=== PATIENT | female | born 1955 | race Caucasian/White ===

== ENCOUNTER 2016-11-18 05:45 | Day surgery (SDC) | payer BC ==
[~2016-11-18] VITALS: Ht 160 cm; Wt 65.8 kg
[~2016-11-18 05:45] MED LIST: ACETAMINOPHEN325 M1 PO; CALCIUM500 MG PO; DAILY MULTIPLE1 EACH PO; PERCOCET 7.5-31 EACH PO; VITAMIN D1000 UNI1 PO
--- NOTE | 2016-11-18 08:37 | NUR ---
11/18/16 0837 Elizabeth Rodriguez PT O2 100% O2 REMOVED. PT AWAKE AND TALKING. PT DENINES PAIN OR NAUSEA MAINING OWN AIRWAY.
[2016-11-18] MEDS ORDERED: IBUPROFEN600 MG PO (08:46)
[2016-11-18] MEDS ORDERED: OXYCODON-ACETA1 EAC2 PO (08:46)
--- NOTE | 2016-11-18 09:02 | NUR ---
ICED WATER AND COFFEE GIVEN. CALL LIGHT W/IN REACH.
--- NOTE | 2016-11-18 10:02 | NUR ---
PT UP TO THE BATHROOM WITH SVETLANA ASST. TOLERATED WELL, LG VOID NOTED AND PT INCONTINENT IN THE BED. LINENS CHANGED AND PT BACK TO BED. WARM BLANKET GIVEN.
--- NOTE | 2016-11-18 10:17 | NUR ---
VERBAL DC INSTRUCTIONS GIVEN IN PRESENCE OF SPOUSE. PT AND SPOUSE BOTH VERBALIZE UNDERSTANDING. PT DRESSES SELF W/SPOUSE IN ROOM AND TRANSFERS SELF WELL TO WC AND PERSONAL VEHICLE.
--- NOTE | 2016-11-18 12:40 | NUR ---
PT RERSTING IN WITH JESSICA BY HER SIDE. SHE IS ALERT AND ORIENTED. I FOUND HER TO BE VERY FRIENDLY. BOTH SEEMED INFORMED AND ASKED FEW QUESTONS. DR MARADIAGA CAME IN FOR A PRE-OP EXAM. PT THANKED ME, WILL CONTINUE TO FOLLOW
--- NOTE | 2016-11-19 06:49 | OR ---
[facility] [address] [place], [place] [address] Signed DATE OF PROCEDURE: 11/18/16 PREOPERATIVE DIAGNOSIS: Right superior posterior thorax soft tissue mass. POSTOPERATIVE DIAGNOSES Right posterior superior soft tissue mass of thorax, subfascial 6 cm, probable lipoma. PROCEDURE Excision of right posterior thorax subfascial soft tissue mass (6 cm). SURGEON: Miko Looney MD. ANESTHESIA General endotracheal (Mara Osuna, CD TECHNICIAN and local 20 mL of 0.25% Marcaine with epinephrine). INDICATION This 60-year-old white woman is a patient of Dr. Hidalgo and is noted to have a soft tissue mass in the right posterior thorax not far from the scapular tip. It appears smooth, but is rather large. It most likely represents a lipoma. It is increasingly symptomatic for her. She is admitted at th is time to undergo excision of the lesion, understands the risks of bleeding, infection, recurrence, and other unforeseen complications, understand that she wished to proceed. FINDINGS The lesion was adherent to the fascia of the latissimus dorsi and was most consistent with multilobulated lipoma. The lesion was approximately 6 cm in maximum length. Complete excision was undertaken without problem. DESCRIPTION OF PROCEDURE The patient was brought to the operating room, given a general endotracheal anesthetic. She was placed in lateral position with careful padding of the axilla and legs and supportive arms. The right posterior thorax was prepared with a Chlorhexidine solution and draped sterilely. Preoperative antibiotic Ancef had been given and sequential compression device stockings were used as well as subcutaneous heparin. After sterile draping, a transverse incision was made along the line of skin tension. Dissection carried through the dermis with electrocautery. The capsule was noted, which was opened and an underlying lipomatous appearing mass was noted. This was dissected free from the subcutaneous more fully down to the fascia of the posterior thorax. This was dissected out completely without morcellation in any way. The lesion excised was approximately 6 cm in length. A 20 mL of 0.25% Marcaine with epinephrine was injected locally for postoperative analgesic effect. The wound was closed in layers with interrupted 2-0 Electronically Signed By: BRENDA GREGORIO MD 11/19/16 0649 PATIENT NAME: DAVID HERNANDEZ OPERATIVE REPORT DATE OF : 51 PHYSICIAN: BRENDA GREGORIO MD REPORT #: [id number] REPORT IS CONFIDENTIAL AND NOT TO BE RELEASED WITHOUT AUTHORIZATION [facility] [address] [place] [address] Signed Vicryl and a running subcuticular 3-0 Vicryl for the skin. Steri-Strips were applied as was a Mepilex silver sponge dressing and an OpSite. BLOOD LOSS: Minimal. COMPLICATIONS None. She was returned to the supine position, ultimately extubated and transferred to recovery room in good condition and suffered no complications. Sponge, needle, and instrument counts were reported as correct x3. MD ALEJANDRINA Boggs/Zion /[id number] cc: Presley Hidalgo MD Electronically Signed By: BRENDA GREGORIO MD 11/19/16 0649 PATIENT NAME: DAVID HERNANDEZ OPERATIVE REPORT DATE OF : 51 PHYSICIAN: BRENDA GREGORIO MD REPORT #: [id number] REPORT IS CONFIDENTIAL AND NOT TO BE RELEASED WITHOUT AUTHORIZATION
== END 2016-11-18 10:20 | disposition home or self-care (01) ==
LOC: DS 05:45
PROVIDERS: Surgery
PROC: 0JB60ZZ Excision of Chest Subcutaneous Tissue and Fascia, Open Approach (ICD-10-PCS; principal; 2016-11-18 06:45)
DX: R22.2 Localized swelling, mass and lump, trunk (principal); Z86.010 Personal history of colon polyps; Z87.891 Personal history of nicotine dependence; Z98.890 Other specified postprocedural states
CPT/HCPCS: 00400; J0330; J0690; J1100; J1644; J1885; J2405; J2704; J7120

== ENCOUNTER 2020-01-09 06:25 | Day surgery (SDC) | payer MEDICARE ==
[~2020-01-09] VITALS: Ht 160 cm; Wt 64.5 kg
--- NOTE | ~2020-01-09 | OR ---
[facility] [address] [place], [place] [address] Draft DATE OF OPERATION: 01/09/2020 SURGEON: Marvin Maradiaga MD PREOPERATIVE DIAGNOSES: 1. Family history of colon cancer in maternal grandfather. 2. Passed prior polyp. POSTOPERATIVE DIAGNOSIS: Normal colon except for possible cecal polyp (biopsied). PROCEDURE: Total colonoscopy to cecum with cold morcellation biopsy x1. ANESTHESIA: Intravenous sedation, fentanyl 100 mcg and Versed 6 mg. INDICATION: This is a 64-year-old white woman is a patient of Dr. Hidalgo and is here for surveillance colonoscopy. She is known to have family history of colon cancer and maternal grandfather. She underwent colonoscopy in the past in 2017, was found to have polyp. The risks of surveillance colonoscopy were reviewed with her including bleeding, infection, perforation, and so on. She understands and wished to proceed. FINDINGS: The prep was good. Complete colonoscopy was undertaken to the cecum. Evaluation behind the ileocecal valve was difficult. A biopsy was obtained and tissue directly behind the ileocecal valve, which did not have typical polyp appearance, but nevertheless was biopsied to assure no sign of adenomatous change. The remaining colon was normal. DESCRIPTION OF PROCEDURE: The patient was brought to the endoscopy suite and placed in lateral decubitus position given intravenous sedation to the point of slurred speech and nystagmus. Digital rectal examination was performed, which was normal. An Olympus video colonoscope was passed in the rectum and manipulated throughout the colon. Passage beyond the transverse colon was somewhat challenging due to angulation deformity, but ultimately was accomplished. The scope was then passed to the cecum where the cecum was visualized as well as the ileocecal valve. Full intubation was somewhat challenging, but the area directly behind the ileocecal valve could not quite be seen fully and therefore, a biopsy forceps was placed there to withdraw the mucosa. This revealed no obvious polyp per se, but PATIENT NAME: DAVID HERNANDEZ OPERATIVE REPORT DATE OF : 51 REPORT #: [id number] PHYSICIAN: MARVIN MARADIAGA MD PCP: JANA HIDALGO MD REPORT IS CONFIDENTIAL AND NOT TO BE RELEASED WITHOUT AUTHORIZATION [facility] [address] [facility] [place] [address] Draft somewhat thickened and on that basis, biopsies obtained and passed for pathology. The scope was then removed, upon withdrawal of scope, no other findings were noted throughout. She tolerated procedure well. She was taken to the recovery room in good condition. CONCLUDING DIAGNOSIS: Possible polyp of cecum, uncertain, await pathology. PLAN: Repeat colonoscopy in 5 years adverse findings on pathology. Marvin Maradiaga MD JM/MODL /[id number] cc: Dr. Huang Copies: ~ PATIENT NAME: DAVID HERNANDEZ OPERATIVE REPORT DATE OF : 51 REPORT #: [id number] PHYSICIAN: MARVIN MARADIAGA MD PCP: JANA HIDALGO MD REPORT IS CONFIDENTIAL AND NOT TO BE RELEASED WITHOUT AUTHORIZATION
[~2020-01-09 06:25] MED LIST changes: +IBUPROFEN600 MG PO; +OXYCODON-ACETA1 EAC2 PO
--- NOTE | 2020-01-09 08:23 | NUR ---
01/09/20 0823 Elizabeth Romo 0810 PT ARRIVED TO PACU ON 2L VIA NC, PT WAKES EASILY TO TACTILE STIMULI. VSS. PT BACK TO SLEEP AND SMALL AMOUNT OF SNORING NOTED. 0821 MD AT BEDSIDE AND PT WAKES TO TACTILE STIMULI.
--- NOTE | 2020-01-10 11:45 | PATH ---
[facility] [address] [place], [place] [address] Signed SPECIMEN(S): A CECUM SPECIMEN SOURCE: A. CECUM CLINICAL HISTORY: Personal hx polyps; rectal bleeding. Post-Op: Possible cecal polyp. MICROSCOPIC DESCRIPTION: Histologic sections of all submitted blocks are examined by light microscopy. These findings, together with the gross examination, support the pathologic diagnosis. FINAL PATHOLOGIC DIAGNOSIS: Colon, cecum, biopsy: - Colonic mucosa with thickened muscularis mucosa (see Comment). - Negative for dysplasia or malignancy. COMMENT: The findings could represent a submucosal leiomyoma. Correlation with colonoscopic findings is recommended. NAL:[facility]:C2NR GROSS DESCRIPTION: The specimen, labeled "MP," and designated on the requisition "cecum biopsy," is received in formalin and consists of one fragment of pink-garcia tissue (0.3 x 0.2 x 0.2 cm). The specimen is submitted entirely in cassette (A1). AC (under the direct supervision of a pathologist) The Gross Description was prepared using a voice recognition system. The report was reviewed for accuracy; however, sound-alike word errors, addition and/or deletions may occur. If there is any question about this report, please contact Client Services. PERFORMING LABORATORY: The technical component was performed by [facility], [address] [place] [address] (Director Community Health Nursing: Mackenzie Kwon MD; CLIA# [id number]). [facility], [address] [address] (CLIA# [id number]). Diagnostician: Shyanne Ingram MD PATIENT NAME: DAVID HERNANDEZ PATHOLOGY DATE OF : 51 REPORT #: [id number] PHYSICIAN: [facility] PCP: JANA PEREZ MD REPORT IS CONFIDENTIAL AND NOT TO BE RELEASED WITHOUT AUTHORIZATION [facility] [address] [place] [address] Signed Pathologist Electronically Signed 01/10/2020 Copies: ~ PATIENT NAME: DAVID HERNANDEZ PATHOLOGY DATE OF : 51 REPORT #: [id number] PHYSICIAN: [facility] PCP: JANA PEREZ MD REPORT IS CONFIDENTIAL AND NOT TO BE RELEASED WITHOUT AUTHORIZATION
== END 2020-01-09 08:50 | disposition home or self-care (01) ==
LOC: DS 06:25
PROVIDERS: ATTEND Surgery
PROC: 0DBH8ZX Excision of Cecum, Via Natural or Artificial Opening Endoscopic, Diagnostic (ICD-10-PCS; principal; 2020-01-09 06:45)
DX: Z12.11 Encounter for screening for malignant neoplasm of colon (principal); K63.5 Polyp of colon; Z86.010 Personal history of colon polyps
CPT/HCPCS: 99153; G0500; J2250; J3010; J7121

== ENCOUNTER 2024-03-08 10:03 | Day surgery (SDC) | payer MEDICARE ==
[~2024-03-08] VITALS: Ht 160 cm; Wt 60.9 kg
[~2024-03-08 10:03] MED LIST changes: +IBLOOD GLUCOSE TEST STRIP 1 EA TEST VI PRN; +LACTATED RINGER'S 1,000 ML IV SCH; +LIDOCAINE HCL 1% 5 ML SDV INJ ONE; +LIPITOR20 MG PO; +MIDAZOLAM HCL 5 MG/5 ML VIAL IV PRN; +PEPCID AC10 MG PO; +VAZALORE81 MG PO; +fentaNYL citrate 100 MCG/2 ML VIAL IV PRN
[2024-03-08 10:41] VITALS: BP 134/72
[2024-03-08] MEDS ORDERED: MIDAZOLAM HCL 5 MG/5 ML VIAL ONE (11:00)
[2024-03-08] MEDS ORDERED: fentaNYL citrate 100 MCG/2 ML VIAL ONE (11:00)
--- NOTE | 2024-03-08 12:12 | NUR ---
03/08/24 1212 Trisha Her 1207-PATIENT ARRIVED TO PACU ON 3L NC RR EVEN. PATIENT DROWSY AROUSES TO VERBAL STIMULI DENIES PAIN OR NAUSEA. LAYING LEFT LATERAL ABDOMEN SOFT. IVF INFUSING. DOZES BACK TO SLEEP
[2024-03-08 13:00] VITALS: BP 131/81
--- NOTE | 2024-03-10 10:55 | PATH ---
[facility] [address] [facility] [place] [address] Signed SPECIMEN(S): A TRANSVERSE COLON POLYPS SPECIMEN(S): B CECUM COLON POLYP SPECIMEN(S): C ASCENDING COLON POLYPS SPECIMEN(S): D TRANSVERSE COLON POLYP SPECIMEN SOURCE: A. TRANSVERSE COLON POLYPS B. CECUM COLON POLYP C. ASCENDING COLON POLYPS D. TRANSVERSE COLON POLYP CLINICAL HISTORY: Rectal bleeding, family history of colon CA. Post: Polyps. FINAL PATHOLOGIC DIAGNOSIS: A. Transverse colon, polypectomies: - Tubular adenomas (two fragments). - Negative for high-grade dysplasia or malignancy. B. Cecum, polypectomies: - Tubular adenomas (multiple fragments). - Negative for high-grade dysplasia or malignancy. C. Ascending colon, polypectomies: - Tubular adenomas (multiple fragments). - Negative for high-grade dysplasia or malignancy. D. Transverse colon, polypectomy: - Tubular adenoma. - Negative for high-grade dysplasia or malignancy. DWS:cml MICROSCOPIC EXAMINATION: Histologic sections of all submitted blocks are examined by light microscopy. These findings, together with the gross examination, support the pathologic diagnosis. GROSS DESCRIPTION: A. The specimen, labeled and designated "Sunny Neumann, transverse colon polyps," is received in formalin and consists of two garcia soft tissue fragments, ranging from 0.3-0.4 cm. Entirely submitted in (A1). B. The specimen, labeled and designated "Sunny Neumann, cecum colon polyp," is received in formalin and consists of four garcia soft tissue fragments, ranging PATIENT NAME: DAVID NEUMANN PATHOLOGY DATE OF : 51 REPORT #: [id number] PHYSICIAN: [facility] PCP: JANA PEREZ MD REPORT IS CONFIDENTIAL AND NOT TO BE RELEASED WITHOUT AUTHORIZATION [facility] [address] [place], [place] [address] Signed from 0.2-0.4 cm. Entirely submitted in (B1). C. The specimen, labeled and designated "Nel, Sunny, ascending colon polyps," is received in formalin and consists of four garcia soft tissue fragments, ranging from 0.2-0.4 cm. Entirely submitted in (C1). D. The specimen, labeled and designated "Nel, M, transverse colon polyp," is received in formalin and consists of three garcia soft tissue fragments, ranging from 0.2-0.3 cm. Entirely submitted in (D1). AB (under the direct supervision of a pathologist) The Gross Description was prepared using a voice recognition system. The report was reviewed for accuracy; however, sound-alike word errors, addition and/or deletions may occur. If there is any question about this report, please contact Client Services. PERFORMING LABORATORY: Technical component was performed by [facility], [address] [place] [id number] (CLIA# [id number]). Professional interpretation was performed by [facility], [address] [place] [id number] (CLIA#: [id number]). Diagnostician: Derrick Khalil MD Pathologist Electronically Signed 03/10/2024 Copies: ~ PATIENT NAME: DAVID NEUMANN PATHOLOGY DATE OF : 51 REPORT #: [id number] PHYSICIAN: [facility] PCP: JANA PEREZ MD REPORT IS CONFIDENTIAL AND NOT TO BE RELEASED WITHOUT AUTHORIZATION
--- NOTE | 2024-03-10 13:15 | OR ---
[facility] [address] [place], [place] [address] Signed DATE OF OPERATION: 03/08/2024 SURGEON: Marvin Maradiaga MD PREOPERATIVE DIAGNOSIS: Family history of colon cancer and history of polyps. POSTOPERATIVE DIAGNOSES: 1. Sigmoid diverticulosis. 2. Polyps x6. PROCEDURE: Total colonoscopy to cecum with cold morcellation polypectomy x6. ANESTHESIA: Intravenous sedation; fentanyl 100 mcg, Versed 6 mg. INDICATION: This 68-year-old white woman is a patient Dr. Jana Hidalgo. She has past medical history including polyp resection and has had colonoscopy in 2014 and 2019. She does have family history of colon cancer. She is admitted at this time to undergo colonoscopy. She understands the risk of bleeding, infection, and perforation. FINDINGS: The prep was excellent. Complete colonoscopy was undertaken of cecum with full intubation of the cecum. She had six polyps in aggregate, all of them small and all excised with cold morcellation technique. Additionally, she had sigmoid diverticulosis. DESCRIPTION OF PROCEDURE: The patient was brought to the endoscopy suite and placed in lateral decubitus position, given intravenous sedation to the point of slurred speech and nystagmus. Digital rectal examination was normal. An Olympus video colonoscope was passed in the rectum and manipulated throughout the colon. Numerous diverticula were noted in the sigmoid and left colon. Scope was ultimately passed to the rectum. Scope was manipulated and irrigation undertaken. A small polyp was noted in the cecum. Withdrawal showed two additional polyps of the right colon, both excised with cold morcellation technique. Additionally, there was a right transverse colon polyp excised with cold morcellation technique and two left transverse colon polyps excised. Further withdrawal showed only diverticulosis. Electronically Signed By: MARVIN MARADIAGA MD 03/10/24 1315 PATIENT NAME: DAVID HERNANDEZ OPERATIVE REPORT DATE OF : 51 REPORT #: [id number] PHYSICIAN: MARVIN MARADIAGA MD PCP: JANA HIDALGO MD REPORT IS CONFIDENTIAL AND NOT TO BE RELEASED WITHOUT AUTHORIZATION [facility] [address] [place], [place] [address] Signed Retroflexed view was normal. Scope was removed. The patient was taken to the recovery room in good condition. CONCLUDING DIAGNOSIS: Polyps x6 and sigmoid diverticulosis. PLAN: Recommend repeat colonoscopy in 5 years based on history of polyps and family history of colon cancer, sooner if symptoms should develop. I would recommend a high-fiber diet on the basis of diverticulosis. She will return to the ongoing care of Dr. Hidalgo. MD ALEJANDRINA Boggs/DEBBIEL /[id number] cc: Jana Hidalgo MD Copies: JANA HIDALGO MD ~ Electronically Signed By: MARVIN MARADIAGA MD 03/10/24 1315 PATIENT NAME: DAVID HERNANDEZ OPERATIVE REPORT DATE OF : 51 REPORT #: [id number] PHYSICIAN: MARVIN MARADIAGA MD PCP: JANA HIDALGO MD REPORT IS CONFIDENTIAL AND NOT TO BE RELEASED WITHOUT AUTHORIZATION
== END 2024-03-08 13:10 | disposition home or self-care (01) ==
LOC: DS 10:03
PROVIDERS: ATTEND Surgery
PROC: 0DBL8ZZ Excision of Transverse Colon, Via Natural or Artificial Opening Endoscopic (ICD-10-PCS; principal; 2024-03-08 11:30)
DX: Z12.11 Encounter for screening for malignant neoplasm of colon (principal); D12.3 Benign neoplasm of transverse colon; D12.0 Benign neoplasm of cecum; D12.2 Benign neoplasm of ascending colon; K57.30 Diverticulosis of large intestine without perforation or abscess without bleeding; E78.5 Hyperlipidemia, unspecified; K21.9 Gastro-esophageal reflux disease without esophagitis; Z86.0101 Personal history of adenomatous and serrated colon polyps; Z79.899 Other long term (current) drug therapy; Z80.0 Family history of malignant neoplasm of digestive organs
CPT/HCPCS: 88305; 99153; G0500; J2250; J3010; J7121